=== PATIENT | female | born 1985 | race African-American/Black ===

== ENCOUNTER 2020-10-05 00:37 | Emergency (ER) | payer SELFPAY ==
[~2020-10-05] VITALS: Ht 165.1 cm; Wt 79.0 kg
[~2020-10-05 00:37] MED LIST: CALC667C4 PO; FOLI-43 PO; PREN-88 PO
[2020-10-05] MEDS ORDERED: MORPHINE SULFATE 4 MG/ML CPJ (NOT FOR IM USE) IV STA ×2 (00:39→02:03)
[2020-10-05] MEDS ORDERED: ONDANSETRON HCL 4MG/2ML INJ IV STA (00:39)
[2020-10-05] MEDS ORDERED: CEFAZOLIN 1000MG PREMIX 50 ML IV ONE (00:45)
[2020-10-05] MEDS ORDERED: TETANUS, DIPHTHERIA, PERTUSSIS VAC/PF 0.5ML (>7YR OLD) IM ONE (00:45)
[2020-10-05] MEDS ORDERED: SODIUM CHLORIDE 0.9% 1,000 ML IV ONE (00:45)
[2020-10-05 01:05] LABS: BASOPHILS % 0.5 % (0.0-2.0); EOSINOPHILS % 2.7 % (0.0-5.0); HEMATOCRIT. 43.8 % (36.0-48.0); HEMOGLOBIN. 14.8 g/dL (12.0-16.0); LYMPHOCYTES % 32.1 % (20.0-50.0); MEAN CORPUSCULAR HEMOGLOBIN 32.7 pg (28.0-32.0); MEAN CORPUSCULAR VOLUME 96.4 fL (81.0-99.0); MEAN PLATELET VOLUME 10.3 fl (7.4-10.4); MONOCYTES % 5.3 % (2.0-8.0); NEUTROPHILS % 59.4 % (40.0-76.0); PLATELET 198 x1000/uL (130-400); RED BLOOD CELL COUNT 4.54 mill/uL (4.2-5.4); RED CELL DISTRIBUTION WIDTH 13.6 % (11.6-14.6)
[2020-10-05 01:07] LABS: CHLORIDE 108 mEq/L (98-107)
[2020-10-05 01:08] LABS: HCG SCREEN NEGATIVE
[2020-10-05] MEDS ORDERED: IOHEXOL-300 100 ML BOTTLE ONE (01:32)
[2020-10-05 02:51] VITALS: BP 139/83
== END 2020-10-05 03:03 | disposition short-term general hospital (02) ==
LOC: ER 00:37
DX: S31.823A Puncture wound without foreign body of left buttock, initial encounter (principal); J45.909 Unspecified asthma, uncomplicated; X93.XXXA Assault by handgun discharge, initial encounter; Y93.89 Activity, other specified; Y92.488 Other paved roadways as the place of occurrence of the external cause
CPT/HCPCS: 36415; 74177; 80053; 84703; 85025; 90471; 90715; 93005; 96365; 96375; 96376; 99285; J0690; J2270; J2405; J7030; Q9967